=== PATIENT | female | born 1995 | race Asian ===

== ENCOUNTER 2022-01-18 17:17 | Emergency (ER) | payer OTHER ==
[2022-01-18 17:30] VITALS: BP 115/57; PULSE 65; TEMP 97.6; BMI 29.1
[2022-01-18] MEDS ORDERED: MECLIZINE HCL 25 MG TABLET (FP) PO ONE (18:07)
[2022-01-18] MEDS ORDERED: SODIUM CHLORIDE 1,000 ML IV STA (18:07)
[2022-01-18] MEDS ORDERED: METOCLOPRAMIDE HCL INJECTION 10 MG/2 ML VIAL IM ONE (18:08)
[2022-01-18] MEDS ORDERED: METOCLOPRAMIDE HCL INJECTION 10 MG/2 ML VIAL ONE (18:39)
[2022-01-18] MEDS ORDERED: MECLIZINE HCL 25 MG TABLET (FP) ONE (18:40)
[2022-01-18 19:42] LABS: BASO % 0.2 % (0-2.0); EOS % 2.6 % (0-4.5); HEMATOCRIT 38.9 % (32.4-45.2); HEMOGLOBIN 12.8 GM/dL (10.7-15.3); LYMPH % 33.7 % (8-40); MCH 28.7 pg (25.7-33.7); MCHC 32.9 g/dl (32.0-36.0); MEAN CELL VOLUME 87.3 fl (80-96); MEAN PLT VOLUME 10.8 fl (7.5-11.1); MONO % 6.3 % (3.8-10.2); NEUT % 57.2 % (42.8-82.8); PLATELET COUNT 190 10^3/uL (134-434); RBC 4.45 M/mm3 (3.60-5.2); RDW 13.1 % (11.6-15.6)
[2022-01-18 20:14] LABS: CALCIUM 9.8 mg/dL (8.5-10.1)
[2022-01-18 20:15] LABS: ALBUMIN 4.2 g/dl (3.4-5.0); BLOOD UREA NITROGEN 15.5 mg/dL (7-18)
[2022-01-18 20:18] LABS: CREATININE 0.8 mg/dL (0.55-1.3)
[2022-01-18 20:19] LABS: BILIRUBIN,TOTAL 0.2 mg/dL (0.2-1); TOT PROT 7.9 g/dl (6.4-8.2)
== END 2022-01-18 20:58 | disposition home or self-care (01) ==
LOC: JER 17:17
PROC: 3E0233Z Introduction of Anti-inflammatory into Muscle, Percutaneous Approach (ICD-10-PCS; principal; 2022-01-18)
PROC: 3E0337Z Introduction of Electrolytic and Water Balance Substance into Peripheral Vein, Percutaneous Approach (ICD-10-PCS; 2022-01-18)
DX: R42 Dizziness and giddiness (principal)
CPT/HCPCS: 36415; 80053; 85025; 99284-25

== ENCOUNTER 2022-04-04 17:42 | Emergency (ER) | payer OTHER ==
[2022-04-04 18:13] VITALS: BP 113/70; TEMP 99.6; BMI 28.3
[2022-04-04] MEDS ORDERED: KETOROLAC TROMETHAMINE 30 MG/1 ML VIAL IM ONE (19:21)
[2022-04-04] MEDS ORDERED: KETOROLAC TROMETHAMINE 30 MG/1 ML VIAL ONE (19:59)
[2022-04-04 20:22] VITALS: PULSE 100
== END 2022-04-04 20:23 | disposition home or self-care (01) ==
LOC: JER 17:42
PROC: 3E023GC Introduction of Other Therapeutic Substance into Muscle, Percutaneous Approach (ICD-10-PCS; principal; 2022-04-04)
DX: J09.X2 Influenza due to identified novel influenza A virus with other respiratory manifestations (principal)
CPT/HCPCS: 0241U-QW; 87651; 87807; 99284-25; C9803-CS; U0003; U0005

== ENCOUNTER 2022-04-26 04:03 | Day surgery (SDC) | payer OTHER ==
[2022-04-20 14:00] VITALS: BMI 27.1
[2022-04-26] MEDS ORDERED: PROPOFOL 20 ML ONE (11:35)
[2022-04-26] MEDS ORDERED: DEXAMETHASONE SOD PHOSPHATE 4 MG/1 ML VIAL ONE (11:35)
[2022-04-26] MEDS ORDERED: LIDOCAINE HCL/PF 2% SDV 5ML VIAL ONE (11:35)
[2022-04-26] MEDS ORDERED: ceFAZolin SODIUM 1 GM VIAL ONE (11:35)
[2022-04-26] MEDS ORDERED: FENTANYL CITRATE/PF 50 MCG/ML VIAL ONE ×3 (11:35→12:43)
[2022-04-26] MEDS ORDERED: MIDAZOLAM HCL 2 MG/2 ML SINGLE DOSE VIAL ONE (11:36)
[2022-04-26] MEDS ORDERED: ROCURONIUM BROMIDE 50 MG/5 ML SYRINGE ONE (11:36)
[2022-04-26] MEDS ORDERED: ceFAZolin SODIUM 1 GM VIAL IVPB ONE (11:39)
[2022-04-26] MEDS ORDERED: NEOSTIGMINE METHYLSULFATE 0.5 MG/ML - 10 ML MDV ONE (12:07)
[2022-04-26] MEDS ORDERED: GLYCOPYRROLATE 0.2 MG/1 ML VIAL ONE (12:07)
[2022-04-26] MEDS ORDERED: ONDANSETRON 4 MG/2 ML VIAL IVPUSH PRN (12:43)
[2022-04-26] MEDS ORDERED: PROMETHAZINE HCL 25 MG/1 ML VIAL IVPUSH PRN (12:43)
[2022-04-26] MEDS ORDERED: LACTATED RINGERS SOLUTION 1,000 ML IV SCH (12:45)
[2022-04-26 17:01] VITALS: BP 107/62; PULSE 74; TEMP 98.2
== END 2022-04-26 16:15 | disposition home or self-care (01) ==
LOC: JASU-SURG 04:03
PROVIDERS: ATTEND Otolaryngology
PROC: 0CTQ0ZZ Resection of Adenoids, Open Approach (ICD-10-PCS; 2022-04-26)
PROC: 0CTPXZZ Resection of Tonsils, External Approach (ICD-10-PCS; principal; 2022-04-26 12:00)
DX: J35.01 Chronic tonsillitis (principal)
CPT/HCPCS: 81025; 94760

== ENCOUNTER 2022-11-22 14:14 | Emergency (ER) | payer OTHER ==
[2022-11-22 14:19] VITALS: BP 114/61; PULSE 92; RESP 18; TEMP 97.5; BMI 25.1
[2022-11-22] MEDS ORDERED: DICLOXACILLIN SODIUM 250 MG CAPSULE PO ONE (15:22)
[2022-11-22] MEDS ORDERED: IBUPROFEN 600 MG TABLET (FP) PO ONE (15:24)
[2022-11-22] MEDS ORDERED: FAMOTIDINE 20 MG/50 ML IVPB 20 MG/50 ML MG IVPB ONE (16:41)
[2022-11-22] MEDS ORDERED: ONDANSETRON 4 MG/2 ML VIAL IVPUSH ONE (16:41)
[2022-11-22] MEDS ORDERED: SODIUM CHLORIDE 1,000 ML IV STA (16:41)
[2022-11-22 17:36] LABS: EPI CELLS >36 /uL (0-25.1); HYALINE CASTS 1 /uL (0-3.1); PH,URINE 5.5 (5.0-8.0); URINE APPEARANCE CLOUDY; URINE BACTERIA 617 /uL (0-1359); URINE BILIRUBIN NEGATIVE (NEGATIVE); URINE COLOR YELLOW; URINE GLUCOSE (UA) NEGATIVE (NEGATIVE); URINE KETONE NEGATIVE (NEGATIVE); URINE LEUK ESTERASE TRACE (NEGATIVE); URINE NITRITE NEGATIVE (NEGATIVE); URINE PROTEIN NEGATIVE (NEGATIVE); URINE RBC 2 /uL (0-23.9); URINE UROBILINOGEN 0.2 mg/dL (0.2-1.0); URINE WBC 22 /uL (0-25.8)
[2022-11-22] MEDS ORDERED: ONDANSETRON *ODT* 4 MG TABLET SL ONE (17:39)
[2022-11-22] MEDS ORDERED: FAMOTIDINE 20 MG TABLET ONE (17:39)
[2022-11-22] MEDS ORDERED: ONDANSETRON *ODT* 4 MG TABLET ONE (17:39)
[2022-11-22 17:54] LABS: BASO % 0.3 % (0-2.0); EOS % 1.5 % (0-4.5); HEMOGLOBIN 13.3 GM/dL (10.7-15.3); LYMPH % 10.8 % (8-40); MCH 28.6 pg (25.7-33.7); MCHC 32.4 g/dl (32.0-36.0); MEAN CELL VOLUME 88.1 fl (80-96); MEAN PLT VOLUME 10.1 fl (7.5-11.1); MONO % 6.2 % (3.8-10.2); NEUT % 81.2 % (42.8-82.8); PLATELET COUNT 154 10^3/uL (134-434); RBC 4.66 M/mm3 (3.60-5.2); RDW 13.8 % (11.6-15.6); WHITE BLOOD COUNT 7.2 K/mm3 (4.0-10.0)
[2022-11-22 18:19] LABS: CALCIUM 8.6 mg/dL (8.5-10.1)
[2022-11-22 18:20] LABS: ALBUMIN 3.9 g/dl (3.4-5.0); BLOOD UREA NITROGEN 16.4 mg/dL (7-18)
[2022-11-22 18:23] LABS: CREATININE 0.6 mg/dL (0.55-1.3)
[2022-11-22 18:24] LABS: BILIRUBIN,TOTAL 0.5 mg/dL (0.2-1)
[2022-11-22 18:25] LABS: TOT PROT 7.4 g/dl (6.4-8.2)
[2022-11-22] MEDS ORDERED: DEXTROSE 50%-WATER 25 GM/50 ML DISP.SYRIN ONE (19:42)
== END 2022-11-22 20:51 | disposition home or self-care (01) ==
LOC: JER 14:14
PROC: 3E033GC Introduction of Other Therapeutic Substance into Peripheral Vein, Percutaneous Approach (ICD-10-PCS; principal; 2022-11-22)
DX: K29.00 Acute gastritis without bleeding (principal)
CPT/HCPCS: 0241U-QW; 36415; 71046-TC-FY; 80053; 81003; 84703; 85025; 87086; 87186; 99284-25; Q0162